=== PATIENT | male | born 1960 | race Caucasian/White ===

== ENCOUNTER 2018-07-05 06:07 | Emergency (ER) | payer BC, OTHER ==
[2018-07-05] MEDS: METHYLPREDNISOLONE 125 MG INJ IM (06:43)
== END 2018-07-05 07:16 | disposition home or self-care (01) ==
LOC: FTE 06:07
DX: R21 Rash and other nonspecific skin eruption (principal)
CPT/HCPCS: 96372; 99284-25; J2930

== ENCOUNTER 2018-10-16 06:55 | Emergency (ER) | payer BC ==
[2018-10-16] MEDS: IBUPROFEN 600 MG TAB PO (07:45)
== END 2018-10-16 07:47 | disposition home or self-care (01) ==
LOC: FTE 06:55
DX: J06.9 Acute upper respiratory infection, unspecified (principal)
CPT/HCPCS: 99283

== ENCOUNTER → 2019-05-16 | Emergency (ER) | payer BC ==
[2019-05-16] MEDS: IBUPROFEN 600 MG TAB PO (13:07)
== END | disposition home or self-care (01) ==
LOC: FTE 12:19
DX: J02.9 Acute pharyngitis, unspecified (principal)
CPT/HCPCS: 87430; 87880; 99283

== ENCOUNTER 2019-07-24 17:04 | Observation (INO) | payer BC ==
[2019-07-24 17:21] LABS: ADD MAN DIFF? NO
[2019-07-24 17:27] LABS: WHITE BLOOD COUNT 5.8 10^3/ul (4.8-10.8)
[2019-07-24 17:27] LABS: BASOPHILS % 0.3 % (0.0-2.0); EOSINOPHILS # 0.2 10^3/ul (0.0-0.5); EOSINOPHILS % 2.8 % (0.0-7.0); HEMOGLOBIN 16.2 g/dl (14.0-18.0); LYMPHOCYTES % 35.2 % (15.0-51.0); MEAN CORPUSCULAR HEMOGLOBIN 31.3 pg (29.0-33.0); MEAN CORPUSCULAR HGB CONC 33.8 g/dl (32.0-37.0); MEAN CORPUSCULAR VOLUME 92.8 fl (82.0-101.0); MONOCYTE # 0.5 10^3/ul (0.3-0.9); MONOCYTES % 7.8 % (0.0-11.0); NEUTROPHIL # 3.1 10^3/ul (1.6-7.5); NEUTROPHILS % 53.7 % (39.0-77.0); PLATELET COUNT 235 10^3/UL (140-415); RED BLOOD COUNT 5.17 10^6/ul (4.70-6.10); RED CELL DISTRIBUTION WIDTH 12.8 % (11.5-14.5)
[2019-07-24 17:39] LABS: HEMOGLOBIN A1C 5.6 % (0-5.9)
[2019-07-24 17:43] LABS: ANION GAP 5 (5-13); BLOOD UREA NITROGEN 18 mg/dl (7-20); CALCIUM 9.4 mg/dl (8.4-10.2); CARBON DIOXIDE 27 mmol/L (21-31); CHLORIDE 107 mmol/L (97-110); CHOL/HDL RATIO 4.9 RATIO; CHOLESTEROL 196 mg/dl (100-200); CREATINE KINASE 129 IU/L (23-200); CREATININE 1.07 mg/dl (0.61-1.24); Estimated GFR > 60 mL/min (>60); GLUCOSE 108 mg/dl (70-220); HDL CHOLESTEROL 40 mg/dl (30-78); LDL CHOLESTEROL,CALCULATED 114 mg/dl; POTASSIUM 3.8 mmol/L (3.5-5.1); SODIUM 139 mmol/L (135-144); TRIGLYCERIDES 209 mg/dl (0-149)
[2019-07-24 17:45] LABS: INR 1.01; PROTIME 13.4 Sec (11.9-14.9)
[2019-07-24 17:46] LABS: PARTIAL THROMBOPLASTIN TIME 27.7 Sec (23.0-35.0)
[2019-07-24 17:55] LABS: CK INDEX 0.7; CK-MB 0.92 ng/ml (0.0-2.4); ETHANOL < 10.0 mg/dl (0-0); TROPONIN-I < 0.012 ng/ml (0.000-0.120)
[2019-07-24] MEDS: IOHEXOL 100 ML (18:08)
[2019-07-24] MEDS: SOD CHLORIDE 0.9% 100 ML (18:08)
[2019-07-24] MEDS: ASPIRIN 325 MG TAB PO (18:26)
[2019-07-24] MEDS: CLOPIDOGREL 300 MG TAB PO (18:44)
[2019-07-24] MEDS ORDERED: ONDANSETRON 4 MG INJ IV (20:00)
[2019-07-24] MEDS ORDERED: ACETAMINOPHEN 325 MG TAB PO ×2 (20:00→22:30)
[2019-07-24] MEDS: FAMOTIDINE 20 MG TAB PO (22:30)
[2019-07-24] MEDS ORDERED: ZOLPIDEM 5 MG TAB PO (22:30)
[2019-07-25] MEDS: CLOPIDOGREL 75 MG TAB PO (08:33)
[2019-07-25] MEDS: ASPIRIN (EC) 81 MG TAB PO (08:33)
[2019-07-25] MEDS: FAMOTIDINE 20 MG TAB PO (08:33)
[2019-07-25] MEDS ORDERED: ATORVASTATIN 40 MG TAB PO (21:00)
== END 2019-07-26 00:46 | disposition home or self-care (01) ==
LOC: 6WM 22:08 → E/R 17:04 → 6WM 07-26 00:46
DX: I63.9 Cerebral infarction, unspecified (principal); E78.5 Hyperlipidemia, unspecified; I10 Essential (primary) hypertension
CPT/HCPCS: 36415; 70450; 70496; 70498; 70551; 71045; 80048; 80061; 80307; 82550; 82553; 83036; 84484; 85025; 85610; 85730; 93005; 93306; 97162; 99285-25; G0378